=== PATIENT | male | born 1985 | race African-American/Black ===

== ENCOUNTER 2024-01-23 15:33 | Emergency (ER) | payer MEDICAID, SELFPAY ==
--- NOTE | ~2024-01-23 | XR_ITS ---
EXAMINATION: XR chest 1V portable 01/23/2024 16:16 INDICATION: Syncope PROCEDURE: AP portable chest COMPARISON: No prior studies for comparison. FINDINGS: The lungs are clear. The cardiomediastinal silhouette is within normal limits. There are no pleural effusions. There is no pneumothorax suspected. IMPRESSION: 1: NO ACUTE CARDIOPULMONARY DISEASE. Reviewed, dictated and finalized at location B.
--- NOTE | ~2024-01-23 | CT_ITS ---
EXAMINATION: CT BRAIN W/O DATE: 01/23/2024 16:36 INDICATION: Seizure. TECHNIQUE: Computed tomography (CT) of the head was performed without intravenous contrast. The dose- length product was 605.33 mGy-cm. Automated exposure control and iterative reconstruction technique were employed. COMPARISON: No prior studies for comparison. FINDINGS: Normal brain parenchymal volume for age. Normal burton-white differentiation. No acute intrac ranial hemorrhage, infarction, mass or mass effect. No ventriculomegaly or midline shift. Midline sagittal images demonstrate a normal corpus callosum, c raniovertebral junction and sella turcica. Basilar cisterns are patent. Paranasal sinuses and mastoids are pneumatized. No depressed skull fractures. IMPRESSION: 1. No acute intracranial abnormality. Reviewed, dictated and finalized at location B.
[2024-01-23 15:35] VITALS: BP 115/70; PULSE 85; RESP 16; TEMP 36.8; O2SAT 98
[2024-01-23 15:52] VITALS: O2SAT 98
--- NOTE | 2024-01-23 15:53 | ECG_ITS ---
[facility] [address] Test Date: 2024-01-23 Pat Name: Sheldon Mahmood Department: Room: Gender: Email Deployment Specialist: [facility] [place] 1985 Requested By: Ermias Ortiz Order Number: [id number] Ana MD: Robb Guerra M.D. Measurements Intervals [place] Rate: 69 P: 65 GA: 188 QRS: 78 QRSD: 92 T: 41 QT: 372 QTc: 400 Interpretive Statements SINUS RHYTHM CANNOT RULE OUT PREVIOUSSEPTAL MYOCARDIAL INFARCTION , BORDERLINE ECG No previous ECG available for comparison Electronically Signed On 01-24-2024 07:47:39 CDT by Robb Guerra M.D.
[2024-01-23] MEDS: SODIUM CHLORIDE 0.9% IV 2,000 ML 999 ML IV CONT (16:06)
[2024-01-23 16:11] LABS: Glucose Point of Care 96 mg/dl (65-105)
--- NOTE | 2024-01-23 16:14 | ED.GENADULT ---
HPI - General Adult General Chief complaint: Syncope Stated complaint: I fell out Time Seen by Provider: 01/23/24 15:40 History of Present Illness HPI narrative: This is a 38-year-old male presenting to ED after a syncopal event. He was talking to his when his vision started to go 10, sounds seemed far away and then he loss consciousness. He fell to the ground and shook for 2-3 seconds before waking up return to his baseline mental status. No tongue biting. No loss of continence. No history of epilepsy. Patient has not had any food throughout the day. Patient denies any chest pain or palpitations before the event. He has had fainting episodes in the past. At this time the patient is resting comfortably in bed with no complaints. Related Data Allergies Allergy/AdvReac Type Severity Reaction Status Date / Time Penicillins AdvReac Unknown Verified 01/23/24 15:52 Exam Narrative: APPEARANCE: No apparent distress. Head: atraumatic. no tongue biting EYES: EOMI, NOSE: Atraumatic NECK: Trachea midline RESPIRATORY: No increased rate of breathing Clear to auscultation CARDIOVASCULAR: RRR, no peripheral edema ABDOMINAL: Non-distended MUSCULOSKELETAl: No obvious deformities NEURO: Alert. Moving 4/4 extremities SKIN:: Warm, dry. Normal color PSYCHIATRIC: Normal affect Course Vital Signs Vital signs: Vital Signs Temperature 98.3 F 01/23/24 15:35 Pulse Rate 85 01/23/24 15:35 Respiratory Rate 16 01/23/24 15:35 Blood Pressure 115/70 01/23/24 15:35 Pulse Oximetry 98 01/23/24 15:35 Oxygen Delivery Room Air 01/23/24 15:35 Temperature 98.3 F 01/23/24 15:35 Pulse Rate 56 L 01/23/24 17:22 Respiratory Rate 15 01/23/24 17:22 Blood Pressure 106/66 01/23/24 17:22 Pulse Oximetry 100 01/23/24 17:22 Oxygen Delivery Room Air 01/23/24 15:52 Medical Decision Making [facility] Narrative Medical decision making narrative: -Course: 38-year-old male presenting with a transient loss of consciousness. Presentation consistent with syncope. No postictal. Tongue biting loss of hearing continence were risk factors for seizure that would make me think this is a first-time seizure. EKG and laboratory studies all within normal limits. Patient was fluid rehydrated here in the ED and is feeling much better. He was given a meal and is tolerating p.o.. He was able ambulate around the ED without difficulty. Patient discharged with return precautions. Primary care follow-up -DDX includes but is not limited to: syncope, seizures, pseudoseizures, cardiac dysrhythmia -Social determinants of health: [employer] [place], lives with his girlfriend, smokes cigarettes and marijuana, denies drugs or alcohol -Independent interpretation of studies: CBC metabolic panel troponin and BNP within normal limits. UDS positive for cannabinoids. Alcohol level less than 10. CT head unremarkable chest x-ray normal Independent EKG interpretation: Rhythm [sinus], Rate [79], [place] -[normal], [place] -[normal], QRS [narrow], QTC [normal], T waves -[negative for concerning inversions], ST Segments - [Negative for concerning elevations] Final interpretations: [Normal Sinus Rhythm] -Interventions:2L normal saline -Shared decision making / Disposition:discharged. Vital Signs Vital Signs: Vital Signs Temperature 98.3 F 01/23/24 15:35 Pulse Rate 85 01/23/24 15:35 Respiratory Rate 16 01/23/24 15:35 Blood Pressure 115/70 01/23/24 15:35 Pulse Oximetry 98 01/23/24 15:35 Oxygen Delivery Room Air 01/23/24 15:35 Temperature 98.3 F 01/23/24 15:35 Pulse Rate 56 L 01/23/24 17:22 Respiratory Rate 15 01/23/24 17:22 Blood Pressure 106/66 01/23/24 17:22 Pulse Oximetry 100 01/23/24 17:22 Oxygen Delivery Room Air 01/23/24 15:52 Lab Data 01/23/24 16:09 01/23/24 16:09 Labs: Lab Results 01/23/24 01/23/24 01/23/24 Range/Units 16:04 16:09 16:58 WBC
[2024-01-23 16:15] LABS: Basophils Percent Auto 0.1 % (0.2-1.2); Eosinophils Percent Auto 0.4 % (0-4.4); Hematocrit 43.6 % (42.0-52.0); Hemoglobin 14.8 g/dL (14.0-18.0); Immature Granulocyte Absolute 0.02 K/mm3 (0.00-0.031); Immature Granulocyte Percent A 0.2 % (0-0.5); Lymphocytes Absolute Auto 1.76 K/mm3 (0.9-3.2); Lymphocytes Percent Auto 20.7 % (18.3-44.2); Mean Corpuscular HGB Conc 33.9 g/dl (32-36); Mean Corpuscular Hemoglobin 31.2 pg (26-34); Mean Corpuscular Volume 91.8 fl (80-100); Mean Platelet Volume 10.3 fl (7.4-10.4); Monocytes Absolute Auto 0.5 K/mm3 (0.1-0.6); Monocytes Percent Auto 5.9 % (2.6-8.5); Neutrophils Absolute Auto 6.2 K/mm3 (1.3-6.7); Neutrophils Percent Auto 72.7 % (45.5-73.1); Platelet Count Result 210 k/mm3 (150-375); Red Blood Count 4.75 M/mm3 (4.6-6.20); Red Cell Distribution Width 13.2 % (11.5-14.5); White Blood Count 8.5 K/mm3 (4.5-10.0)
[2024-01-23 16:26] LABS: Lactic Acid Reflex 0.8 mmol/L (0.7-2.0)
[2024-01-23 16:27] LABS: Ethanol < 10 mg/dL (<10)
[2024-01-23 16:31] LABS: Alanine Aminotransferase 13 U/L (6-50); Albumin Level 3.5 g/dL (3.5-5.1); Alkaline Phosphatase 50 U/L (38-126); Anion Gap 2 mmol/L (4-12); Aspartate Amino Transferase 25 U/L (17-59); Bilirubin,Total 0.6 mg/dL (0.2-1.3); Blood Urea Nitrogen 15 mg/dL (9-20); Calcium 8.7 mg/dL (8.4-10.2); Carbon Dioxide 26 mmol/L (22-30); Chloride 110 mmol/L (98-107); Estimated CRCL calculation 71 ml/min; Estimated Glomerular Filt Rate > 60; Glucose 93 mg/dL (65-110); Potassium 3.9 mmol/L (3.4-5.0); Sodium 138 mmol/L (137-145)
[2024-01-23 16:36] LABS: NT Pro B Type Natriuretic Pept 112 pg/mL (19.9-100)
[2024-01-23 16:40] LABS: Troponin I < 0.012 ng/mL (0.000-0.034)
[2024-01-23 17:21] LABS: Amphetamine Screen Urine Negative (Negative); Barbiturate Screen Urine Negative (Negative); Benzodiazepines Screen Urine Negative (Negative); Cannabinoid Screen Urine Positive (Negative); Cocaine Screen Urine Negative (Negative); Methadone Screen Urine Negative (Negative); Opiate Screen Urine Negative (Negative); Phencyclidine Screen Urine Negative (Negative)
[2024-01-23 17:22] VITALS: BP 106/66; PULSE 56; RESP 15; O2SAT 100
[2024-01-23 18:42] VITALS: BP 110/68; PULSE 66; RESP 16; O2SAT 100
== END 2024-01-23 18:43 | disposition home or self-care (01) ==
PROVIDERS: Emergency Provider Emergency Medicine
DX: R55 Syncope and collapse (principal)
CPT/HCPCS: 36415; 70450; 71045; 80053; 80307; 82948; 83605; 83880; 84484; 85025; 93005; 96360; 99284; J7030